=== PATIENT | male | born 1990 | race Caucasian/White ===

== ENCOUNTER 2021-06-29 17:58 | Emergency (ER) | payer SELFPAY ==
[2021-06-29 18:14] VITALS: BP 103/61; PULSE 68; TEMP 98.3; BMI 21.6
[2021-06-29] MEDS ORDERED: IBUPROFEN 600 MG TABLET (FP) PO ONE ×2 (18:14→18:31)
== END 2021-06-29 18:41 | disposition home or self-care (01) ==
LOC: FER 17:58
DX: M54.5 Low back pain (principal); X50.1XXA Overexertion from prolonged static or awkward postures, initial encounter
CPT/HCPCS: 99283-25

== ENCOUNTER 2022-10-13 16:51 | Emergency (ER) | payer SELFPAY ==
[2022-10-13 17:00] VITALS: BP 110/72; PULSE 55; RESP 16; TEMP 97.8; BMI 22.0
== END 2022-10-13 17:20 | disposition home or self-care (01) ==
LOC: FER 16:51
DX: S01.502A Unspecified open wound of oral cavity, initial encounter (principal); C00-D49 Neoplasms; Y99.9 Unspecified external cause status
CPT/HCPCS: 99281-25